=== PATIENT | female | born 1940 | race Caucasian/White ===

== ENCOUNTER → 2016-10-31 | Day surgery (SDC) | payer MEDICARE ==
[~2016-10-31] MED LIST: ATOR10TA15 PO; BETH25 PO; BUPIVACAINE HCL PF 0.5% 30 ML VIAL ONE; CHOL1CAP60 PO; COZA25TA PO; DILT240C PO; FERR325C PO; FERR325T PO; FOLI1TAB6 PO; FOLI5CAP PO; FURO1TAB62 PO; GABA400C5 PO; GAS-125C3 PO; HYDR12.57 PO; HYDR2TAB PO; KENAAER TOPICAL; LACT3000 PO; LEVO.075 PO; LOPE-1 PO; LOPE7.5C PO; MIRA3350 PO; MIRA33504 PO; OMEP20TA PO; PLAV75TA29 PO; POTA10CA PO; PROM1SUP9 RECTAL; PROM25TA10 PO; PROM25TA5 PO; PROPOFOL 200 MG/20 ML AMP IV ONE; SERT-129 PO; SULF400T PO; TEMA30CA PO; TRAM50TA PO; TRIAMCINOLONE ACETONIDE 40 MG/ML VIAL I-ARTICULR ONE; VITA2000 PO; ZANA2CAP PO; [UNRECOGNIZED DRUG - CODE] PO; methylPREDNISolone ACETATE 40 MG/ML VIAL I-ARTICULR ONE
--- NOTE | 2016-11-03 06:11 | M6 ---
cc: ELAINA KO M.D. DATE 10/31/2016 DATE OF 1940 PROCEDURE Fluoroscopically guided injection bilateral sacroiliac joints. History and physical was completed and signed. Consent was signed. Procedure site was marked. Medications were listed and reconciled. Pain score was recorded. Allergies were noted. Time out was taken. Fluoroscopy time was recorded where applicable. Sedation was administered or directed by Dr. Ko. The patient was given oxygen. The patient was monitored by a registered nurse. Total procedure time was greater than 15 minutes. PROCEDURE NOTE IV was started. Blood pressure cuff, pulse oximeter and EKG were applied. The patient was placed in the prone position on a Jona table, sedated with small amounts of propofol titrated to effect. Vital signs were monitored and remained stable throughout the procedure. The sacral area was prepped with alcohol and 10% Betadine solution, draped with sterile drapes. Fluoroscopy was used shooting from medial to lateral to clearly visualize the posterior joint line of the bilateral sacroiliac joints. Separate sterile 5-inch, 22-gauge spinal needles were advanced into these joints under fluoroscopic guidance. There was negative aspiration for blood or any other type of fluid and the patient was given 2 mL of 0.5% Marcaine, 20 mg of Depo-Medrol and 20 mg of Kenalog. Following the procedure the patient was taken to the recovery room with stable vital signs, neurologically intact. W. MD XAVIER Weldon/GER /10:00 AM /6:00 AM
== END | disposition home or self-care (01) ==
LOC: PHSDC 08:39
PROVIDERS: ATTEND Pain Medicine Interventional Pain Medicine
DX: M54.5 Low back pain (principal); I10 Essential (primary) hypertension
CPT/HCPCS: 99152; G0260; J1030; J3301; 27096

== ENCOUNTER → 2017-01-24 | Day surgery (SDC) | payer MEDICARE ==
[~2017-01-24] MED LIST changes: -BUPIVACAINE HCL PF 0.5% 30 ML VIAL ONE; -GAS-125C3 PO; -KENAAER TOPICAL; +LIDOCAINE HCL 1% 30 ML VIAL NERV BLOCK ONE; -PROM1SUP9 RECTAL; +SODIUM CHLORIDE 0.9% 10 ML VIAL ONE; -SULF400T PO; -TRAM50TA PO; -TRIAMCINOLONE ACETONIDE 40 MG/ML VIAL I-ARTICULR ONE; -methylPREDNISolone ACETATE 40 MG/ML VIAL I-ARTICULR ONE; +methylPREDNISolone ACETATE 80 MG/ML VIAL ONE
--- NOTE | 2017-01-24 09:54 | M6 ---
cc: ELAINA KO M.D. DATE 01/24/2017 DATE OF 1940 PROCEDURE Caudal epidural steroid injection. PROCEDURE NOTE History and physical was completed and signed. Consent was signed. Procedure site was marked. Medications were listed and reconciled. Pain score was recorded. Allergies were noted. Time out was taken. Fluoroscopy time was recorded where applicable. Sedation was administered or directed by Dr. Ko. The patient was given oxygen. The patient was monitored by a registered nurse. Total procedure time was greater than 15 minutes. An IV was started, blood pressure cuff, pulse oximeter and EKG were applied. The patient was placed in the prone position, sedated with small amounts of Versed and propofol titrated to effect. Vital signs were monitored and remained stable throughout the procedure. The sacral and coccygeal area were scrubbed with antimicrobial solution and prepped with 10% Betadine solution. The sacral hiatus was palpated. A 2-inch 20 gauge spinal needle was inserted easily on the first attempt. There was negative aspiration for blood or CSF. There was no apparent paresthesia. The patient was slowly given 20 mL 0.5% Xylocaine, 60 mg of Kenalog which contained 80 mg of Depo-Medrol. The patient was taken to the recovery area with stable vital signs, neurologically intact. W. MD XAVIER Weldon/JACK /9:10 AM /9:47 AM
== END | disposition home or self-care (01) ==
LOC: PHSDC 06:51
PROVIDERS: ATTEND Pain Medicine Interventional Pain Medicine
DX: M54.5 Low back pain (principal)
CPT/HCPCS: 62323; 99152; J1040